=== PATIENT | male | born 1940 | race Caucasian/White ===

== ENCOUNTER 2024-02-02 17:35 | Emergency (ER) | payer MEDICARE, OTHER ==
[~2024-02-02 17:35] MED LIST: Iopamidol-370 76% 500 ML MDV (1 ML CHARGE) ONE
[2024-02-02 18:55] LABS: #Basophils 0.04 10x3/uL (0.0-0.2); %Basophils 0.4 % (0.0-1.0); %Eosinophils 0.5 % (0.0-10.0); %Lymphocytes 19.1 % (21.0-51.0); %Monocytes 7.5 % (0.0-10.0); Hematocrit 48.7 % (42.0-52.0); Hemoglobin 16.3 g/dL (14.0-18.0); Mean Corpuscular HGB CONC 33.5 g/dL (32.0-36.0); Mean Corpuscular Hemoglobin 33.8 pg (27.0-31.0); Platelet Count 174 10x3/uL (130-400); RBC Distribution Width 13.3 % (11.5-14.5); Red Blood Cell (RBC) Count 4.82 mill/uL (4.70-6.10)
[2024-02-02 19:10] LABS: PTT 26.9 sec (22.9-36.1); Prothrombin Time 13.5 sec (12.0-14.7)
[2024-02-02 19:13] LABS: Troponin I Less than 0.010 ng/mL (< 0.028)
[2024-02-02 19:14] LABS: ALT (SGPT) 21 U/L (8-55); AST (SGOT) 21 U/L (5-34); Albumin 3.4 g/dL (3.4-4.8); Alkaline Phosphatase 69 U/L (40-110); Anion Gap 13 mmol/L (10-20); BUN (Urea Nitrogen) 22 mg/dL (8.4-25.7); Bilirubin, Total 0.5 mg/dL (0.2-1.2); Calc. Creatinine Clearance 0 mL/min (70-130); Calcium 9.2 mg/dL (7.8-10.44); Carbon Dioxide 24 mmol/L (23-31); Chloride 105 mmol/L (98-107); Estimated GFR 87; Globulin 2.8 g/dL (2.4-3.5); Glucose 102 mg/dL (83-110); Potassium 4.2 mmol/L (3.5-5.1); Protein, Total 6.2 g/dL (5.8-8.1); Sodium 138 mmol/L (136-145)
[2024-02-02] MEDS ORDERED: Orphenadrine Citrate 100 MG ER.TAB ONE (21:00)
== END 2024-02-02 21:08 | disposition home or self-care (01) ==
LOC: ERS 17:35 → EEVIPCON 17:35 → ERS 21:08
DX: K92.1 Melena (principal); M54.31 Sciatica, right side; F17.200 Nicotine dependence, unspecified, uncomplicated
CPT/HCPCS: 36415; 74177; 80053; 82274; 84484; 85025; 85610; 85730; 86850; 86900; 86901; 93005; Q9967